=== PATIENT | male | born 1960 | race Caucasian/White ===

== ENCOUNTER → 2019-12-05 | Outpatient (CLI) | payer BC, SELFPAY ==
--- NOTE | 2019-12-05 09:55 | EKG12_ITS ---
Test Reason : PRE-OP Blood Pressure : / mmHG Vent. Rate : 070 BPM Atrial Rate : 070 BPM P-R Int : 168 ms QRS Dur : 092 ms QT Int : 382 ms P-R-T Axes : 044 064 058 degrees QTc Int : 412 ms Normal sinus rhythm Nonspecific T wave abnormality Abnormal ECG Confirmed by SABRINA PELAYO, JEFF ([id number]), supervising film or videotape editor RIMA SORENSEN ([id number]) on 12/07/2019 12:44:17 PM Referred By: ULISSES WEBER Confirmed By:JEFF BENNETT MD
[2019-12-05 10:27] LABS: Absolute Lymphocyte Count 2.17 X10^3/uL (0.83-4.51); Basophil# 0.05 X10^3/uL; Basophil% 0.5 % (0-1); Eosinophil# 0.14 X10^3/uL; Eosinophils% 1.5 % (0-5); Hemoglobin 17.3 g/dL (13.0-16.5); Lymphocyte # 2.17 X10^3/ul (4.0); Lymphocyte % 23.2 % (19-41); Mean Corp Hgb Conc 33.3 g/dL (32-36); Mean Corpuscular Hgb 30.2 pg (27.0-32.0); Mean Corpuscular Volume 90.9 fL (80-94); Mean Platelet Vol. 10.1 fl (6.2-12.0); Monocyte# 0.97 X10^3/uL; Monocyte% 10.4 % (0-10); NRBC Flagged by Analyzer 0 % (0-5); Platelet Count 290 K/mm3 (150-450); RBC Distribution Width CV 12.8 % (11.6-14.6); RBC Distribution Width SD 42.2 fl (35.1-43.9); Red Blood Count 5.72 M/mm3 (4.6-6.2); White Blood Count 9.4 K/mm3 (4.4-11.0)
[2019-12-05 10:54] LABS: Anion Gap 5 (5-15); BUN 18 mg/dL (7-18); BUN/Creat Ratio 18.3 RATIO (10-20); Calcium,Total 9.3 mg/dL (8.5-10.1); Chloride 108 mmol/L (98-107); Creatinine, Serum 0.98 mg/dL (0.70-1.30); EST Glomerular Filtration Rate 83 mL/min (>60); Est Glom Filt Rate - Afr Amer 100 mL/min (>60); Glucose 109 mg/dL (74-106); Potassium 3.6 mmol/L (3.5-5.1); Sodium Level 140 mmol/L (136-145)
== END | disposition home or self-care (01) ==
LOC: LAB 09:38
PROVIDERS: PCP Family Medicine; Visit Provider Physician Assistant Surgical
DX: Z01.818 Encounter for other preprocedural examination (principal)
CPT/HCPCS: 36415; 80048; 85025; 93005

== ENCOUNTER → 2019-12-11 | Outpatient (CLI) | payer BC, SELFPAY | END | disposition home or self-care (01) | LOC: MTDU 19:00 | PROVIDERS: PCP Family Medicine; Referring Provider Physician Assistant Surgical; Visit Provider Physician Assistant Surgical | DX: Z11.59 Encounter for screening for other viral diseases (principal) | CPT/HCPCS: 87635; G2023; U0003 ==

== ENCOUNTER 2019-12-16 16:09 | Observation (INO) | payer BC, SELFPAY ==
[2019-12-16 15:53] VITALS: BMI 42.7
--- NOTE | 2019-12-16 16:00 | PCM.HP.STD ---
History of Present Illness Date of Admission: 12/16/19 Chief Complaint: Shortness of breath. The patient is a 58 year old M who had a right total hip replacement at our outpatient surgery center today. During the case patient noted to have a significant drop in saturation. Findings were consistent with perfusion as the issue. Patient was adequately treated intraoperatively. Surgery could be finished. He was doing well in the postoperative area however he was unable to be successfully weaned from oxygen. Based on this we elected to transfer him to the hospital for admission for overnight observation and medical consultation. Patient's hip pain is adequately controlled. He does report moderate thigh pain. Worse with motion better with immobilization. Plan is to follow a postoperative hip protocol and monitor his respiratory situation. Past Medical History Medical History: Medical History (Last Updated 12/16/19 @ 16:[address] Tito Reeves MD) Hard of hearing (Acute) H91.90 Hypertension (Chronic) I10 Home Medications: Ambulatory Orders Medication Instructions Recorded Amlodipine [Norvasc] 10 mg PO DAILY 12/16/19 Hydrochlorothiazide [Hctz] 25 mg PO DAILY 12/16/19 Lisinopril [Zestril] 5 mg PO DAILY 12/16/19 Surgical History: tonsillectomy, - - Right total hip replacement. today Psychiatric History: No pertinent psych hx Lives: Spouse/ Significant Other Smoking Status: Never smoker Tobacco Use: Non-smoker Alcohol: Occasional Drugs: None Review of Systems Constitutional: Denies: Chills, Fever, Weight Change HEENT: Denies: Head Aches, Sinus Congestion, Sinus Drainage Cardiovascular: Denies: Chest Pain, Palpitations Respiratory: Reports: Shortness of Breath, Shortness of breath at rest Gastrointestinal: Denies: Abdominal Pain, Nausea, Vomiting Genitourinary: Denies: Dysuria Musculoskeletal: Reports: Joint Pain Skin: Denies: Rash, Wounds Neurological: Denies: Numbness, Tingling, Focal weakness Psychiatric: Denies: Anxiety, Depression, Homicidal Ideations, Suicidal Ideations Hematologic/ Lymphatic: Denies: Easy Bruising, Easy Bleeding VTE Information - Inpt Only VTE Present on Admission: No VTE Mechan Device Prophylaxis: SCD's, Knee High VEDA Hose VTE Pharm Prophylaxis ordered?: Yes VTE Suspected: Suspected PE - concern for intra-op embolism - Physical Exam General: Alert, Oriented x3, Cooperative Lungs: Short of Breath Cardiovascular: Regular rate Extremities: - - Right lower extremity: Dressing has some mild early saturation Sensations intact to light touch saphenous, sural, superficial peroneal, deep peroneal, and tibial distributions Motors intact EHL, DF, PF calves are soft and supple Assessment/Plan Postop day 0 right direct anterior total hip replacement. Patient will be admitted tonight for observation. Concern for some type of emboli during surgery. Ongoing order a CTA. Will follow standard postop protocols for total hip replacement. Spoke with the medicine doctor they will be on consultation. Oxycodone and Tylenol for pain. Aspirin for DVT prophylaxis.
--- NOTE | 2019-12-16 16:11 | CT_ITS ---
STUDY: CTA CHEST REASON FOR EXAM: Male, 58 years old. PT STATED DECREASED O2 POST HIP SX TODAY RADIATION DOSAGE (If Supplied By Facility): CTDIvol = ( 20.97 ) mGy, DLP = ( 574.97 ) mGycm TECHNIQUE: The examination was performed with the intravenous administration of 100ML ISOVUE 370. Post-processing of the angiographic images was performed, with multiplanar reformation and 3D reconstruction. Individualized dose optimization techniques were used for this CT. COMPARISON: None. FINDINGS: Normal enhancement of the main pulmonary artery and right and left pulmonary arteries. Normal enhancement of the bilateral peripheral pulmonary arteries. There is no demonstrated pulmonary embolism. Mild elongation of the thoracic aorta without calcified plaque, aneurysm or dissection. Normal cardiac size. Minimal left coronary calcifications. Negative for pericardial effusion. Fatty mediastinum. Normal hilar regions. Normal visualized trachea and bronchi. The lungs are well expanded. Minimal dependent atelectatic changes without consolidation. Calcified granuloma in the right lung. Normal pleura. Normal pleura. Normal chest wall structures. There are degenerative changes of thoracic spine. Demineralized osseous structures. Normal visualized upper abdomen. No acute findings in the uppermost abdomen. CT/CTA Chest W/WO Contrast IMPRESSION: Negative for pulmonary embolus. Mild elongation of the thoracic aorta without calcification, aneurysm or dissection. Normal cardiac size. Minimal coronary calcifications. Minimal dependent atelectatic changes without consolidation, infiltrates or pleural effusion. Electronically Signed: Jacqueline White MD at 17:42 EDT , Service support ,
--- NOTE | 2019-12-16 16:29 | PN_ITS ---
<Андерй Ramírez - Last Filed: 12/16/19 16:29> Reason for Visit: Post op hypoxia Subjective: This is a 58 year old male with pmhx of HTN who was directly admitted to the med surg floor from the outpatient surgery center with hypoxia. The patient had a right total hip per Dr. Reeves today. During the op he had some desaturations that were manageable, however after the surgery he could not be weaned off O2. The patient however does not feel SOB. He is currently resting comfortably in bed semi delacruz with NAD. He has never used O2 in the past. He has no smoking hx. He has no hx of lung disease. He does have risk factors concerning for KONRAD including HTN, BMI, sex, and age so STOPBANG is at least 4. 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 Currently he has no SOB, no chest pain, no pressure/tightness, no LH/dizziness, and no cough. No fever/chills. No nausea/vomiting/diarrhea. He has no hip pain at all right now and has already ambulated post op. Vitals/I&O's: Weight: 323 lb 13.745 oz Body Mass Index (BMI) 42.7 General: Alert, Oriented x3, Cooperative HEENT: Atraumatic, PERRLA, EOMI, Normocephalic Neck: Supple, No JVD, Negative Carotid Bruits Lungs: Clear to auscultation, Normal air movement Cardiovascular: Regular rate, No murmurs Abdomen: Bowel Sounds Present, Soft, Non Tender, Obese Extremities: No edema, Capillary Refill Less than 3 Seconds Skin: No rashes, No breakdown Musculoskeletal: No Tenderness to Palpation of Joints or Extremities, - - RLE distal PMS intact Neurological: Cranial nerves II-XII grossly intact Psych/Mental Status: Normal Affect, Appropriate, Alert and oriented to time, place, person, mood and affect Current Medications Acetaminophen (Tylenol) 1,000 mg PO Q8 [facility] Aspirin (Aspirin, Baby) 81 mg PO BIDCM [facility] Enteral Nutritional Formula (Ensure Surgery) 237 ml PO TIDCM [facility] Famotidine (Pepcid) 20 mg PO DAILY [facility] Lactated Ringer's () 1,000 mls @ 125 mls/hr IV .Q8H [facility] Cefazolin Sodium () 1 gm in 50 mls @ 150 mls/hr IV Q8 [facility] Stop: 12/17/19 06:19 Ketorolac Tromethamine (Toradol (Bkc)) 15 mg IV Q6H PRN PRN PRN Reason: Pain Score 1-5/10 Stop: 12/18/19 16:10 Meloxicam (Mobic) 7.5 mg PO BID [facility] Morphine Sulfate () 2 - 4 mg IV Q2H PRN PRN PRN Reason: Pain Score 4-10/10 Ondansetron HCl (Zofran) 4 mg IV Q8H PRN PRN PRN Reason: NAUSEA Oxycodone HCl (Oxyir) 5 - 10 mg PO Q4H PRN PRN PRN Reason: Pain Score 4-10/10 Promethazine HCl (Phenergan) 12.5 mg IM Q6H PRN PRN; Protocol PRN Reason: NAUSEA/VOMITING Senna/Docusate Sodium (Senokot-S, Franchesca-Colace) 2 tablet PO BID [facility] Sodium Chloride () 10 - 40 ml IV UD PRN PRN Reason: SALINE FLUSH Assessment/Plan 1. Osteoarthritis, s/p Right total hip POD#0 - doing well. Care per Dr. Reeves. No pain. Pt has already ambulated. 2. Intra/post op hypoxia - no hx of lung dz or o2 requirement. Pt comfortably and asymptomatic on 2 lpm NC. Check CTA chest with concern for Fat emboli. Check AM CBC/BMP. Pt likely needs referral for outpatient testing for sleep apnea and lung disease including PSG and PFTs. Provide incentive spirometer and prn aerosols if he becomes SOB. 3. HTN - continue home meds - stable. 4. Morbid obesity - complicating #1/2/3. DVT ppx: per ortho, 81 aspirin BID Thank you for the opportunity to participate in the care of this patient. This patient was seen by Андрей Ramírez PA-C under the supervision of Doctor Vee levine. <Parveen Sawyer - Last Filed: 12/16/19 16:48> Vitals/I&O's: Weight: 146.9 kg Body Mass Index (BMI) 42.7 General: Alert, Cooperative HEENT: Atraumatic, Normocephalic Neck: No Nodes, Trachea Midline Lungs: Clear to auscultation, Normal air movement, No rhonchi, No wheeze Cardiovascular: Regular rate, Regular Rhythm, Normal S1, Normal S2, No murmurs Abdomen: Bowel Sounds Present, Soft, Non Tender, Obese Extremities: No edema, No Calf Tenderness Skin: No rashes, No breakdown Musculoskeletal: No Tenderness to Palpation of Joints or Extremities, - Psych/Mental Status: Normal Affect, Appropriate Current Medications Acetaminophen (Tylenol) 1,000 mg PO Q8 [facility] Albuterol Sulfate (Ventolin Aerosols) 2.5 mg INHALATION Q6H PRN PRN PRN Reason: SOB &/OR WHEEZING Aspirin (Aspirin, Baby) 81 mg PO BIDCM [facility] Enteral Nutritional Formula (Ensure Surgery) 237 ml PO TIDCM [facility] Famotidine (Pepcid) 20 mg PO DAILY [facility] Lactated Ringer's () 1,000 mls @ 125 mls/hr IV .Q8H [facility] Cefazolin Sodium () 1 gm in 50 mls @ 150 mls/hr IV Q8 [facility] Stop: 12/17/19 06:19 Ketorolac Tromethamine (Toradol (Bkc)) 15 mg IV Q6H PRN PRN PRN Reason: Pain Score 1-4/10 Stop: 12/18/19 16:10 Meloxicam (Mobic) 7.5 mg PO BID [facility] Morphine Sulfate () 2 - 4 mg IV Q2H PRN PRN PRN Reason: Pain Score 4-10/10 Ondansetron HCl (Zofran) 4 mg IV Q8H PRN PRN PRN Reason: NAUSEA Oxycodone HCl (Oxyir) 5 - 10 mg PO Q4H PRN PRN PRN Reason: Pain Score 4-10/10 Promethazine HCl (Phenergan) 12.5 mg IM Q6H PRN PRN; Protocol PRN Reason: NAUSEA/VOMITING Senna/Docusate Sodium (Senokot-S, Franchesca-Colace) 2 tablet PO BID [facility] Sodium Chloride () 10 - 40 ml IV UD PRN PRN Reason: SALINE FLUSH Assessment/Plan Patient seen and examined independently. Data reviewed. I agree with the above note by the physician billing and accounting staff assistant. 1. hypoxia: post-op while at rest and sleep. likely multifactorial due to meds, body habitus. Was hypotensive in surgery. DW Dr. Murguia and Leandro. concern for fat emboli. CTA ordered. Oxygen, wean as tolerated. Check ambulatory pulse ox as outpt. Consider outpt PSG to eval for KONRAD. 2. S/P Right hip replacement: mgmt per orthopaedics. 3. VTE prophylaxis: on ASA BID. Inpatient E&M: 53014 Subs Hosp L3
--- NOTE | 2019-12-16 16:43 | NURSING ---
PT TO CT SCAN VIA BED
--- NOTE | 2019-12-16 16:49 | EKG12_ITS ---
Test Reason : Blood Pressure : / mmHG Vent. Rate : 090 BPM Atrial Rate : 090 BPM P-R Int : 160 ms QRS Dur : 094 ms QT Int : 348 ms P-R-T Axes : 042 063 068 degrees QTc Int : 425 ms Normal sinus rhythm Nonspecific T wave abnormality Abnormal ECG When compared with ECG of 05-DEC-2019 10:03, No significant change was found Confirmed by SABRINA PELAYO, JEFF ([id number]), development editor VY MARTINES ([id number]) on 12/20/2019 10:11:05 AM Referred By: AVELINO Confirmed By:JEFF BENNETT MD
[2019-12-16 17:42] VITALS: BMI 42.7
[2019-12-16 17:46] VITALS: RESP 16
[2019-12-16] MEDS: Ensure Surgery 237 ML LIQUID PO (18:06)
[2019-12-16] MEDS: Aspirin 81 MG TAB.CHEW PO (18:07)
[2019-12-16 19:41] VITALS: BP 139/71; PULSE 82; RESP 18; TEMP 36.7; O2SAT 95
[2019-12-16] MEDS: Senna/Docusate Sodium 1 Tablet 2 TABLET PO (21:47)
[2019-12-16] MEDS: Acetaminophen 500 MG Tablet 1000 MG PO (21:48)
[2019-12-16] MEDS: Cefazolin 1 GM/50 ML BAG IV (21:48)
[2019-12-17] MEDS: Lactated Ringers 1,000 ML 125 ML IV (00:07)
[2019-12-17 01:41] VITALS: BP 139/83; PULSE 75; RESP 18; TEMP 36.9; O2SAT 97
[2019-12-17 06:13] VITALS: BP 161/85; PULSE 71; RESP 16; TEMP 36.5; O2SAT 94
[2019-12-17] MEDS: Cefazolin 1 GM/50 ML BAG IV (06:16)
[2019-12-17] MEDS: Acetaminophen 500 MG Tablet 1000 MG PO (06:20)
[2019-12-17] MEDS: 0.9% Saline Lock 10 ML Syringe IV (06:50)
[2019-12-17 06:57] LABS: Hemoglobin 14.5 g/dL (13.0-16.5); Mean Platelet Vol. 10.1 fl (6.2-12.0); Platelet Count 250 K/mm3 (150-450); RBC Distribution Width CV 12.8 % (11.6-14.6); RBC Distribution Width SD 43.7 fl (35.1-43.9); Red Blood Count 4.68 M/mm3 (4.6-6.2); White Blood Count 12.3 K/mm3 (4.4-11.0)
--- NOTE | 2019-12-17 07:12 | PN.ORTHO_ITS ---
Patient Problems: Active and Suspected Problems (Last Updated 12/16/19 @ 16:[address] Tito Reeves MD) Hard of hearing (Acute) Subjective: 58-year-old male who was admitted to the hospital after having difficulty with oxygen saturation after surgery yesterday. He has had minimal pain. Taking only Tylenol for pain. No acute events overnight. CTA revealed no embolus. CTA was ordered based on intraoperative events and postoperative difficulties with oxygen saturation. He was able to do physical therapy yesterday, and did well. - Physical Exam Vitals/I&O's: Vital Signs Temp Pulse Resp BP Pulse Ox 97.7 F L 71 16 161/85 H 94 12/17/19 06:13 12/17/19 06:13 12/17/19 06:13 12/17/19 06:13 12/17/19 06:13 Oxygen Flow Rate (L/min) 2 Oxygen Delivery Method Room Air Weight: 323 lb 13.745 oz Body Mass Index (BMI) 42.7 Intake and Output for Last 24 Hours 12/15/19 12/16/19 12/17/19 23:59 23:59 23:59 Intake Total 50 / 1500 2939.58 / 2939.58 Balance 50 / 1500 2939.58 / 2939.58 General: Alert, Oriented x3, Cooperative Oral: Moist Mucosa Lungs: - - Nonlabored breathing Extremities: - - Right lower extremity: Dressing has moderate saturation laterally with serous type fluid. Dressing was taken down incision had a small gap of the lateral corner of the incision. The wet Steri-Strips were removed dry Steri-Strips were placed after sterilely cleaning the area. A new silver Mepilex dressing was placed. Sensations intact to light touch saphenous, sural, superficial peroneal, deep peroneal, and tibial distributions Motors intact EHL, DF, PF calves are soft and supple Laboratory Results 12/17/19 06:35: WBC 12.3 H, RBC 4.68, Hgb 14.5, Hct 44.0, MCV 94.0, MCH 31.0, MCHC 33.0, RDW Std Deviation 43.7, RDW Coeff of Avani 12.8, Plt Count 250, MPV 10.1 12/17/19 06:35: Sodium Pending, Potassium Pending, Chloride Pending, Carbon Dioxide Pending, Anion Gap Pending, BUN Pending, Creatinine Pending, Est GFR (MDRD) Af Amer Pending, Est GFR (MDRD) Non-Af Pending, BUN/Creatinine Ratio Pending, Glucose Pending, Calcium Pending Current Medications Acetaminophen (Tylenol) 1,000 mg PO Q8 [facility] Last Admin: 12/17/19 06:20 Dose: 1,000 mg Documented by: Albuterol Sulfate (Ventolin Aerosols) 2.5 mg INHALATION Q6H PRN PRN PRN Reason: SOB &/OR WHEEZING Amlodipine Besylate (Norvasc) 10 mg PO DAILY [facility] Aspirin (Aspirin, Baby) 81 mg PO BIDCM [facility] Last Admin: 12/16/19 18:07 Dose: 81 mg Documented by: Enteral Nutritional Formula (Ensure Surgery) 237 ml PO TIDCM [facility] Last Admin: 12/16/19 18:06 Dose: 237 ml Documented by: Famotidine (Pepcid) 20 mg PO DAILY [facility] Hydrochlorothiazide (Hctz) 25 mg PO DAILY [facility] Lactated Ringer's () 1,000 mls @ 125 mls/hr IV .Q8H [facility] Last Infusion: 12/17/19 06:50 Dose: 0 mls/hr Documented by: Ketorolac Tromethamine (Toradol (Bkc)) 15 mg IV Q6H PRN PRN PRN Reason: Pain Score 1-4/10 Stop: 12/18/19 16:10 Lisinopril (Zestril) 5 mg PO DAILY [facility] Meloxicam (Mobic) 7.5 mg PO BID [facility] Morphine Sulfate () 2 - 4 mg IV Q2H PRN PRN PRN Reason: Pain Score 4-10/10 Ondansetron HCl (Zofran) 4 mg IV Q8H PRN PRN PRN Reason: NAUSEA Oxycodone HCl (Oxyir) 5 - 10 mg PO Q4H PRN PRN PRN Reason: Pain Score 4-10/10 Promethazine HCl (Phenergan) 12.5 mg IM Q6H PRN PRN; Protocol PRN Reason: NAUSEA/VOMITING Senna/Docusate Sodium (Senokot-S, Franchesca-Colace) 2 tablet PO BID [facility] Last Admin: 12/16/19 21:47 Dose: 2 tablet Documented by: Sodium Chloride () 10 - 40 ml IV UD PRN PRN Reason: SALINE FLUSH Last Admin: 12/17/19 06:50 Dose: 10 ml Documented by: Medical Necessity - Tobacco Use Smoking Status: Never smoker Tobacco Use: Non-smoker Assessment/Plan All Active Problems (Last Updated 12/16/19 @ 16:[address] Tito Reeves MD) Hard of hearing (Acute) Postop day 1 right total hip replacement with shortness of breath. 1. Shortness of breath: Shortness of breath and oxygen saturations at rest resolved. Patient is 94% on room air. Will be for patient to follow-up with primary care physician on discharge for potential sleep apnea. 2. DVT prophylaxis: Aspirin twice daily 3. Pain control: Pain is well controlled continue current regimen Tylenol with oxycodone as needed. 4. PT: Weightbearing as tolerated activity as tolerated. 5. Medical management: Appreciate medical management of this patient. CTA was without significant findings last evening. 6. Disposition: Plan will be for discharge home today. Patient has home medication as he was planned for outpatient surgery yesterday admitted for shortness of breath. We will do physical therapy before he leaves today. Patient was cautioned on only mild activities over the weekend as swelling decreases and wound begins to heal. This should help with further drainage from the wound. Call the office on Thursday if he continues to have drainage. Dressing will remain for 5 days. He can shower dressing on.
--- NOTE | 2019-12-17 07:19 | DCINST_ITS ---
Discharge Activity: May Not Drive - while taking narcotic pain medications. May shower in (days): 1 - only if incision is dry and without drainage. Do NOT soak/submerge in tub/pool/loja/stream/hot tub. Weight Bearing Status: Weight bearing as tolerated Additional Activity Instructions:: Wear elastic stockings for 2 weeks. DO NOT use alcohol with narcotic pain medication. DO NOT make important decisions while taking narcotic medication. If you have problems with taking your medica tion (rash, itching, nausea, etc.) call the office at once. Call your doctor if your incision/area has: Increased Pain/ Swelling, Increased Redness, Foul Smelling Discharge Call your doctor if you observe: Fever of 101 or Higher Remove Dressing in (days):: 12-22-2019 Cleanse incision/area with: Keep Dressing Clean & Dry Additional Instructions: Follow outpatient postoperative instruction sheet. Allergies/Adverse Reactions: Allergies No Known Allergies Allergy (Verified 12/16/19 16:01) Medications to take at Discharge Amlodipine [Norvasc] 10 mg PO DAILY 12/16/19 Hydrochlorothiazide [Hctz] 25 mg PO DAILY 12/16/19 Lisinopril [Zestril] 5 mg PO DAILY 12/16/19 Acetaminophen [Tylenol] 1,000 mg PO Q8 tab 12/17/19 Aspirin [Aspirin, Baby] 81 mg PO BIDCM tab.chew 12/17/19 Ensure Surgery 237 ml PO TIDCM liquid 12/17/19 Famotidine [Pepcid] 20 mg PO DAILY tab 12/17/19 Meloxicam [Mobic] 7.5 mg PO BID tab 12/17/19 Senna/Docusate Sodium [Senokot-S] 2 tab PO BID tab 12/17/19 Primary Care Physician: Tito Sagastume MD [Primary Care Provider] - Please follow up with your Primary Care Physician in: for SOB potential sleep apnea Test Results: Test results from this visit will be discussed in further detail at your follow- up appointment, if applicable. Please Follow Up With: Dusty iLnda PA-C When: as previously scheduled
[2019-12-17 08:12] LABS: Anion Gap 9 (5-15); BUN 17 mg/dL (7-18); BUN/Creat Ratio 16.2 RATIO (10-20); Calcium,Total 8.2 mg/dL (8.5-10.1); Chloride 105 mmol/L (98-107); Creatinine, Serum 1.05 mg/dL (0.70-1.30); EST Glomerular Filtration Rate 77 mL/min (>60); Est Glom Filt Rate - Afr Amer 93 mL/min (>60); Estimated Creatinine Clearance 86.66 ml/min; Glucose 137 mg/dL (74-106); Potassium 4.5 mmol/L (3.5-5.1); Sodium Level 141 mmol/L (136-145)
[2019-12-17 08:23] VITALS: O2SAT 94
[2019-12-17 08:40] VITALS: BP 152/82; PULSE 74; RESP 18; TEMP 36.8; O2SAT 94
[2019-12-17] MEDS: Lisinopril 5 MG Tablet PO (08:42)
[2019-12-17] MEDS: Famotidine 20 MG Tablet PO (08:42)
[2019-12-17] MEDS: Aspirin 81 MG TAB.CHEW PO (08:42)
[2019-12-17] MEDS: hydroCHLOROthiazide 25 MG Tablet PO (08:42)
[2019-12-17] MEDS: Ensure Surgery 237 ML LIQUID PO (08:42)
[2019-12-17] MEDS: amLODIPine 10 MG Tablet PO (08:43)
[2019-12-17] MEDS: Senna/Docusate Sodium 1 Tablet 2 TABLET PO (08:43)
--- NOTE | 2019-12-17 15:22 | PN_ITS ---
<Андрей Ramírez - Last Filed: 12/17/19 15:22> Reason for Visit: hypoxia Subjective: pt without hypoxia. no SOB. no cp. No LE edema. ambulating with minimal pain. Vitals/I&O's: Vital Signs Temp Pulse Resp BP Pulse Ox 98.2 F 74 18 152/82 H 94 12/17/19 08:40 12/17/19 08:40 12/17/19 08:40 12/17/19 08:40 12/17/19 08:40 Oxygen Flow Rate (L/min) 2 Oxygen Delivery Method Room Air Weight: 323 lb 13.745 oz Body Mass Index (BMI) 42.7 Intake and Output for Last 24 Hours 12/15/19 12/16/19 12/17/19 23:59 23:59 23:59 Intake Total 50 / 1500 2939.58 / 2939.58 Balance 50 / 1500 2939.58 / 2939.58 General: Alert, Oriented x3, Cooperative HEENT: Atraumatic, PERRLA, EOMI, Normocephalic Neck: Supple, No JVD, Negative Carotid Bruits Lungs: Clear to auscultation, Normal air movement Cardiovascular: Regular rate, No murmurs Abdomen: Bowel Sounds Present, Soft, Non Tender Extremities: No edema, Capillary Refill Less than 3 Seconds Skin: No rashes, No breakdown Musculoskeletal: No Tenderness to Palpation of Joints or Extremities Neurological: Cranial nerves II-XII grossly intact Psych/Mental Status: Normal Affect, Appropriate, Alert and oriented to time, place, person, mood and affect Laboratory Results 12/17/19 06:35: WBC 12.3 H, RBC 4.68, Hgb 14.5, Hct 44.0, MCV 94.0, MCH 31.0, MCHC 33.0, RDW Std Deviation 43.7, RDW Coeff of Avani 12.8, Plt Count 250, MPV 10.1 12/17/19 06:35: Sodium 141, Potassium 4.5, Chloride 105, Carbon Dioxide 27.0, Anion Gap 9, BUN 17, Creatinine 1.05, Estim Creat Clear Calc 86.66, Est GFR (M DRD) Af Amer 93, Est GFR (MDRD) Non-Af 77, BUN/Creatinine Ratio 16.2, Glucose 137 H, Calcium 8.2 L Medical Necessity - Tobacco Use Smoking Status: Never smoker Tobacco Use: Non-smoker Assessment/Plan All Active Problems (Last Updated 12/16/19 @ 16:[address] Tito Reeves MD) Hard of hearing (Acute) 1. Osteoarthritis, s/p Right total hip POD#1 - doing well. Care per Dr. Reeves. No pain. Ambulating with minimal issues. 2. Intra/post op hypoxia - resolved. Recommend o/p PSG and PFTs. 3. HTN - continue home meds - stable. 4. Morbid obesity - complicating #1/2/3. DVT ppx: per ortho, 81 aspirin BID OK to be DCd home today. Thank you for the opportunity to participate in the care of this patient. This patient was seen by Андрей Ramírez PA-C under the supervision of Doctor Verónica <Jaime Sanches F - Last Filed: 12/18/19 07:19> Vitals/I&O's: Vital Signs Temp Pulse Resp BP Pulse Ox 98.2 F 74 18 152/82 H 94 12/17/19 08:40 12/17/19 08:40 12/17/19 08:40 12/17/19 08:40 12/17/19 08:40 Oxygen Flow Rate (L/min) 2 Oxygen Delivery Method Room Air Weight: 323 lb 13.745 oz Body Mass Index (BMI) 42.7 Intake and Output for Last 24 Hours 12/16/19 12/17/19 12/18/19 23:59 23:59 23:59 Intake Total 50 / 1500 2939.58 / 2939.58 Balance 50 / 1500 2939.58 / 2939.58 Laboratory Results 12/17/19 06:35: Sodium 141, Potassium 4.5, Chloride 105, Carbon Dioxide 27.0, Anion Gap 9, BUN 17, Creatinine 1.05, Estim Creat Clear Calc 86.66, Est GFR (MDRD) Af Amer 93, Est GFR (MDRD) Non-Af 77, BUN/Creatinine Ratio 16.2, Glucose 137 H, Calcium 8.2 L Addendum: Dr. Sanches I personally examined the patient and reviewed the chart. I agree with the above. 58-year-old male presents for his right total hip replacement. After surgery he was little bit hypoxic therefore medicine was consulted. This was likely retention of anesthetic, and on the day of discharge he was breathing without oxygen was not short of breath. No significant lower extremity edema and pain was controlled. He is cleared for discharge by medicine at this point. Inpatient E&M: 92618 Subs Hosp L2
== END 2019-12-17 11:15 | disposition home or self-care (01) ==
PROVIDERS: Specialist; PCP Family Medicine; Visit Provider Family Medicine
DX: T81.89XA Other complications of procedures, not elsewhere classified, initial encounter (principal); R09.02 Hypoxemia; I10 Essential (primary) hypertension; Z79.899 Other long term (current) drug therapy; G47.33 Obstructive sleep apnea (adult) (pediatric); E66.01 Morbid (severe) obesity due to excess calories; Z68.41 Body mass index [BMI] 40.0-44.9, adult; M19.90 Unspecified osteoarthritis, unspecified site; Y83.8 Other surgical procedures as the cause of abnormal reaction of the patient, or of later complication, without mention of misadventure at the time of the procedure; Y92.530 Ambulatory surgery center as the place of occurrence of the external cause
CPT/HCPCS: 36415; 71275; 80048; 85027; 93005; 96361; 96365; 96366; 99218; 99251; J7120; Q9967; A4216; G0378; G0379; G0463